=== PATIENT | female | born 1975 | race Caucasian/White ===

== ENCOUNTER 2021-07-30 15:15 | Emergency (ER) | payer BC, SELFPAY ==
--- NOTE | ~2021-07-30 | CT_ITS ---
EXAMINATION: CT abdomen pelvis w con INDICATION: Back pain and fever TECHNIQUE: Computed tomographic images of the abdomen and pelvis were obtained after the administrati on of 100 cc of Omnipaque 350 intravenous contrast. The dose-length product (DLP) was 192.24 mGy-cm. Automated exposure control and iterative reconstruction technique were employed. COMPARISON: None available FINDINGS: Minimal dependent atelectasis is present in the lung bases. The heart size is normal. The l iver, spleen, pancreas, gallbladder, and adrenal glands are normal. The kidneys are unremarkable. Humphrey cified atherosclerosis is noted. No pathologically enlarged abdominal or pelvic lymph nodes are ident ified. There is no free intraperitoneal gas or evidence of bowel obstruction. The appendix is normal. No CT abnormality is identified in the left buttock in the area marked with the BB. The lumbar spine is unremarkable. A 2.3 cm mass of the left adnexa demonstrates enhancement identical to the uterine fundus and is connected to the wrist by a thin stalk, consistent with a pedunculated fibroid. IMPRESSION: 1. No CT correlate for the patient's symptoms. Reviewed, dictated and finalized at location A.
[2021-07-30 15:18] VITALS: BP 131/69; PULSE 100; RESP 14; TEMP 36.6; O2SAT 97
--- NOTE | 2021-07-30 15:24 | ED.GENADULT ---
HPI - General Adult General Chief complaint: Skin/Abscess/Foreign Body Stated complaint: bump on back Time Seen by Provider: 07/30/21 15:21 History of Present Illness HPI narrative: Patient is a 46 and female otherwise healthy who comes into the ED today with concern that she may have an abscess and her low back area. Patient reports that for the last 2 days she has been having subjective fevers and chills and sweats but she does not have a monitor at home to check this with. She takes aspirin which helps. She is having some tightness in the left side of her low back and she can feel a lump there so she is concerned that she may have an abscess. Denies any other symptoms. Denies previous history of similar symptoms. No chance of . No other concerns. Related Data Allergies Allergy/AdvReac Type Severity Reaction Status Date / Time erythromycin base Allergy Unknown Verified 07/19/16 16:42 Review of Systems Constitutional: Constitutional: Reports as per HPI, Reports fever(s), Denies night sweats and Denies weakness Cardiovascular: Cardiovascular: Denies chest pain, Denies edema, Denies leg edema, Denies dyspnea and Denies orthopnea Respiratory: Respiratory: Denies cough and Denies dyspnea Gastrointestinal: Gastrointestinal: Denies abdominal pain, Denies constipation, Denies diarrhea, Denies nausea and Denies vomiting Musculoskeletal: Musculoskeletal: Denies abnormal gait, Denies back pain, Denies numbness and Denies tingling Neurologic: Denies Abnormal speech present, Denies abnormal gait, Denies numbness, Denies tingling and Denies weakness Psychiatric: Psychiatric: Denies homicidal ideation and Denies suicidal ideation [facility] Social History Social History Smoking status: Never smoker Alcohol intake: never Exam Narrative: Pleasant, well-appearing Const: General: cooperative, healthy appearing, comfortable, no acute distress, well developed, alert, awake and Physically active Orientation/consciousness: patient oriented x3 HENMT: Head: normal to inspection, normocephalic and atraumatic Ears: external ears normal General nose exam: Normal external nose present Eyes: Pupils: Equal, round and reactive pupils present EOM: EOMs intact bilaterally Neck: Neck: normal visual inspection Chest: Chest palpation & inspection: normal inspection of the chest and no tenderness Resp: Effort & Inspection: normal respiratory effort and able to speak in complete sentences Auscultation: clear to auscultation bilaterally Cardio: Rate: regular rate Rhythm: regular rhythm GI: Inspection: normal to inspection GI Palp: Yes abdominal tenderness : General: Yes no CVA tenderness Back/Spine/Pelvis: Back: no CVA tenderness and other Other: Full range of motion. Neurovascular intact throughout. Back/spine/pelvis image: 1. At the lower lumbar musculature there is what feels like a muscle spasm. But no overlying erythema or edema or induration or fluctuance or any other skin changes. No midline tenderness. Skin: General skin exam: normal color and no rashes or lesions noted Lesions: no lesions Neuro: General: patient oriented x3, no focal motor deficits and CN's II-XI intact bilaterally Cranial nerves: Yes Equal, round and reactive pupils present Speech: No Abnormal speech present Extrem: General: normal to inspection and full ROM Psych: Appearance: grossly normal and well kempt Mental Status: mental status grossly normal Speech and movement: Normal speech and movement present Affect: normal affect Thought process: Normal thought process present Course Reevaluation(s) Reevaluation #1: Rechecked patient. Very normal work-up. Gave patient reassurance that there is no signs of abscess clinically or on CT/lab work. Symptoms to be muscular in nature. Unclear cause of subjective fevers. Patient tells me that about 2 weeks ago she felt a pull in the left side of her low back when moving an object which m
[2021-07-30 17:22] LABS: Basophils Percent Auto 0.3 % (0.2-1.2); Eosinophils Percent Auto 0.1 % (0-4.4); Hematocrit 44.1 % (37.0-47.0); Hemoglobin 14.8 g/dL (12.0-15.0); Immature Granulocyte Absolute 0.03 K/mm3 (0.00-0.031); Immature Granulocyte Percent A 0.3 % (0-0.5); Lymphocytes Absolute Auto 1.76 K/mm3 (0.9-3.2); Lymphocytes Percent Auto 18.1 % (18.3-44.2); Mean Corpuscular HGB Conc 33.6 g/dl (32-36); Mean Corpuscular Hemoglobin 31.4 pg (26-34); Mean Corpuscular Volume 93.4 fl (80-100); Mean Platelet Volume 10.8 fl (7.4-10.4); Monocytes Absolute Auto 0.7 K/mm3 (0.1-0.6); Neutrophils Absolute Auto 7.2 K/mm3 (1.3-6.7); Neutrophils Percent Auto 74.2 % (45.5-73.1); Platelet Count Result 285 k/mm3 (150-375); Red Blood Count 4.72 M/mm3 (4.2-5.4); Red Cell Distribution Width 12.4 % (11.5-14.5); White Blood Count 9.7 K/mm3 (4.5-10.0)
[2021-07-30 17:32] LABS: Alanine Aminotransferase 13 U/L (4-35); Albumin Level 5.3 g/dL (3.5-5.1); Alkaline Phosphatase 93 U/L (38-126); Anion Gap 16 mmol/L (8-16); Aspartate Amino Transferase 22 U/L (14-36); Bilirubin,Total 0.6 mg/dL (0.2-1.3); Blood Urea Nitrogen 4 mg/dL (7-17); Calcium 9.7 mg/dL (8.4-10.2); Carbon Dioxide 24 mmol/L (22-30); Chloride 101 mmol/L (98-107); Estimated Glomerular Filt Rate > 60; Glucose 137 mg/dL (65-110); Potassium 3.7 mmol/L (3.4-5.0); Sodium 141 mmol/L (137-145)
[2021-07-30 18:18] LABS: Add Urine Microscopic? YES; Appearance Urine Clear (Clear); Bacteria Urine Trace /hpf; Bilirubin Urine Negative (Negative); Blood Urine 1+ (Negative); Color Urine Yellow (Yellow); Glucose Urine UA Negative (Negative); Ketones Urine Trace mg/dL (Negative); Leukocyte Esterase Ur Negative LEU/UL (Negative); Mucus Urine Rare /lpf; Nitrate Urine Negative (Negative); Protein Urine 1+ mg/dL (Negative); Specific Grav Ur 1.009 (1.001-1.035); Squamous Epithelial Cell Urine Rare /hpf (Few); Urobilinogen Urine Negative mg/dL (<2.0); WBC Urine 0-3 /hpf
[2021-07-30 20:54] VITALS: BP 139/88; PULSE 114; RESP 15; O2SAT 97
== END 2021-07-30 20:55 | disposition home or self-care (01) ==
PROVIDERS: Physician Assistant Medical; Emergency Provider Emergency Medicine; PCP Internal Medicine
DX: S39.012A Strain of muscle, fascia and tendon of lower back, initial encounter (principal); M62.830 Muscle spasm of back; X58.XXXA Exposure to other specified factors, initial encounter
CPT/HCPCS: 36415; 74177; 80053; 81001; 81025; 85025; 99283; 99284; Q9967

== ENCOUNTER 2021-08-01 02:27 | Emergency (ER) | payer BC, SELFPAY ==
[2021-08-01 02:33] VITALS: BP 147/86; PULSE 96; RESP 14; TEMP 36.2; O2SAT 100
[2021-08-01 04:56] VITALS: BP 121/77; BP 128/97; BP 155/90; PULSE 80; PULSE 88
[2021-08-01] MEDS: MECLIZINE HCL 25 MG TABLET PO (04:57)
--- NOTE | 2021-08-01 04:58 | ED.GENADULT ---
HPI - General Adult General Chief complaint: Dizziness Stated complaint: dizzy for 6 month intermittently Time Seen by Provider: 08/01/21 03:47 History of Present Illness HPI narrative: Patient is a 46-year-old female who presents ER with dizziness. Reports has been ongoing for several months. She cannot elaborate as to if it spinning dizziness or lightheadedness. She is unsure how long it lasts. When asked if it lasts for seconds or minutes or hours she cannot give an answer. Denies any numbness or tingling or weakness to an arm or leg. She was seen in the ER recently for muscle spasms and had normal blood work and a normal CT scan. Patient reports he has not seen a PCP in 3 years. Related Data Allergies Allergy/AdvReac Type Severity Reaction Status Date / Time erythromycin base Allergy Unknown Unknown Verified 08/01/21 02:38 Review of Systems Review of Systems: All systems reviewed & are unremarkable except as noted in HPI and below Constitutional: Constitutional: Denies chills, Denies fever(s) and Denies weakness Eyes: Eyes: Denies change in vision and Denies photophobia ENT: Reports dizziness, Denies nasal congestion and Denies sore throat Cardiovascular: Cardiovascular: Denies chest pain, Denies rapid heart rate and Denies radiating jaw, neck or arm pain Respiratory: Respiratory: Denies cough and Denies dyspnea Neurologic: Denies headache(s), Denies focal weakness and Denies numbness PMFSH Past Medical History Medical History (Updated 08/01/21 @ 06:00 by Victor Manuel Claire MD) Healthy female adult Surgical History Surgical History (Updated 08/01/21 @ 05:56 by Victor Manuel Claire MD) No history of previous surgery Social History Social History Smoking status: Never smoker Alcohol intake: never Exam Narrative: GENERAL: Well-appearing, well-nourished, and in no acute distress. HEAD: Normocephalic, atraumatic. EYES: PERRLA and EOMI. ENT: Mucous membranes moist. TMs normal bilaterally. CHEST: Clear to auscultation. No respiratory distress. HEART: Regular rate and rhythm. Normal peripheral pulses. EXTREMITIES: Normal range of motion. No edema. SKIN: Warm, dry, no rash. NEURO: Alert and oriented x3. Course Course Emergency Course: Patient received meclizine. Patient is either high or has mental illness. She denies using any drugs and denies having mental illness and denies ever being treated for mental illness. She is giggling regularly while in her room. Vital Signs Vital signs: Vital Signs Temperature 97.1 F L 08/01/21 02:33 Pulse Rate 96 08/01/21 02:33 Respiratory Rate 14 08/01/21 02:33 Blood Pressure 147/86 H 08/01/21 02:33 Pulse Oximetry 100 08/01/21 02:33 Temperature 97.1 F L 08/01/21 02:33 Pulse Rate 80 08/01/21 04:56 Respiratory Rate 14 08/01/21 02:33 Blood Pressure 121/77 08/01/21 04:56 Pulse Oximetry 100 08/01/21 02:33 Medical Decision Making Vital Signs Vital Signs: Vital Signs Temperature 97.1 F L 08/01/21 02:33 Pulse Rate 96 08/01/21 02:33 Respiratory Rate 14 08/01/21 02:33 Blood Pressure 147/86 H 08/01/21 02:33 Pulse Oximetry 100 08/01/21 02:33 Temperature 97.1 F L 08/01/21 02:33 Pulse Rate 80 08/01/21 04:56 Respiratory Rate 14 08/01/21 02:33 Blood Pressure 121/77 08/01/21 04:56 Pulse Oximetry 100 08/01/21 02:33 Discharge Plan Discharge Clinical Impression: Dizziness Patient Disposition: Home, Self-Care Condition: Stable Instructions: Dizziness (ED) Additional Instructions: Follow-up with your primary care doctor for further treatment evaluation of your dizziness. Return the ER if you have fever over 100.4 ?F, you cannot keep down food or water, you have additional concerns. Prescriptions: No Action naproxen 500 mg tablet 500 mg PO BID PRN (Reason: pain) Qty: 14 RF: 0 Follow-up/Referrals: Gurdeep Payton MD [Primary Care Provider] - 1 Week
--- NOTE | 2021-08-01 05:47 | PC.NURSE ---
Patient states not feeling better or worse after medication.
[2021-08-01 06:13] VITALS: BP 139/89; PULSE 81; RESP 18; TEMP 36.7; O2SAT 99
== END 2021-08-01 06:36 | disposition home or self-care (01) ==
PROVIDERS: Emergency Provider Emergency Medicine; PCP Internal Medicine
DX: R42 Dizziness and giddiness (principal)
CPT/HCPCS: 99283; A9270

== ENCOUNTER 2021-08-02 06:14 | Observation (INO) | payer BC, SELFPAY ==
[2021-08-02] VITALS (8 sets, daily range): BP systolic 101–130; BP diastolic 72–88; PULSE 81–96; RESP 14–20; TEMP 36.2–36.8; O2SAT 98–100
--- NOTE | ~2021-08-02 | MR_ITS ---
EXAMINATION: MR brain/brain stem wo/w con DATE: 08/02/2021 14:19 INDICATION: Altered mental status TECHNIQUE: Magnetic resonance imaging (MRI) of the brain and brainstem was performed without and with intravenous contrast. Sequences included sagittal and axial T1-weighted SE, axial diffusion-weighted FS EPI ASSET, axial T2*-weighted GRE, axial T2-weighted FLAIR Propeller, and axial T2-weighted Prope ller. Postcontrast axial and coronal T1-weighted SE was obtained. Apparent diffusion coefficient (ADC ) maps were created. COMPARISON: None. FINDINGS: There are no areas of restricted diffusion to suggest acute infarction. There is no acute h emorrhage seen on the T2*, a hemosiderin sensitive sequence. The ventricles are normal in size. There are no extra-axial collections. Flow voids are seen in the cerebral arteries on the T2-weighted seq uences consistent with their expected patency. Visualized orbits and soft tissues are unremarkable. There are no areas of abnormal enhancement on the post contrast images. IMPRESSION: 1. No acute findings. Reviewed, dictated and finalized at location A. IMPRESSION: 1. No acute findings.
--- NOTE | ~2021-08-02 | CT_ITS ---
EXAMINATION: CT BRAIN W/O DATE: 08/02/2021 07:57 INDICATION: Confusion, dizziness, headache and blurred vision. TECHNIQUE: Computed tomography (CT) of the head was performed without intravenous contrast. The dose- length product was 605.33 mGy-cm. COMPARISON: No prior studies for comparison. FINDINGS: Normal brain parenchymal volume for age. Normal henson-white differentiation. No acute intrac ranial hemorrhage, infarction, mass or mass effect. There is a small hyperdense lesion at the third v entricle measuring 4 mm, compatible with colloid cyst. No ventriculomegaly or midline shift. Midline sagittal images demonstrate a normal corpus callosum, c raniovertebral junction and sella turcica. Basilar cisterns are patent. Paranasal sinuses and mastoids are pneumatized. No depressed skull fractures. IMPRESSION: 1. No acute intracranial abnormality. 2: Colloid cyst measuring 4 mm, image 22. Reviewed, dictated and finalized at location A.
--- NOTE | 2021-08-02 06:46 | PC.NURSE ---
Pt's belongings found in ED, and returned to pt.
--- NOTE | 2021-08-02 07:02 | PC.NURSE ---
pt appears asleep, resting on stretcher c eyes closed. no s/s of distress.
--- NOTE | 2021-08-02 07:11 | ECG_ITS ---
Measurements Intervals [place] Rate: 90 P: -53 PA: 137 QRS: 3 QRSD: 80 T: -7 QT: 356 QTc: 436 Interpretive Statements ECTOPIC ATRIAL RHYTHM INCOMPLETE RIGHT BUNDLE BRANCH BLOCK BORDERLINE T WAVE ABNORMALITY- INFERIOR LEADS BASELINE ARTIFACT- II, III, AVF ABNORMAL ECG Electronically Signed On 08-02-2021 9:04:55 CDT by Shane Pathak D.O.
[2021-08-02 07:37] LABS: Basophils Absolute Auto 0.1 K/mm3 (0.0-0.1); Basophils Percent Auto 0.7 % (0.2-1.2); Eosinophils Absolute Auto 0.2 K/mm3 (0-0.3); Eosinophils Percent Auto 1.4 % (0-4.4); Hematocrit 38.2 % (37.0-47.0); Hemoglobin 13.2 g/dL (12.0-15.0); Immature Granulocyte Absolute 0.03 K/mm3 (0.00-0.031); Immature Granulocyte Percent A 0.3 % (0-0.5); Lymphocytes Absolute Auto 2.25 K/mm3 (0.9-3.2); Lymphocytes Percent Auto 20.5 % (18.3-44.2); Mean Corpuscular HGB Conc 34.6 g/dl (32-36); Mean Corpuscular Hemoglobin 31.3 pg (26-34); Mean Corpuscular Volume 90.5 fl (80-100); Mean Platelet Volume 10.6 fl (7.4-10.4); Monocytes Absolute Auto 0.9 K/mm3 (0.1-0.6); Monocytes Percent Auto 7.8 % (2.6-8.5); Neutrophils Absolute Auto 7.6 K/mm3 (1.3-6.7); Neutrophils Percent Auto 69.3 % (45.5-73.1); Platelet Count Result 269 k/mm3 (150-375); Red Blood Count 4.22 M/mm3 (4.2-5.4); Red Cell Distribution Width 12.2 % (11.5-14.5)
--- NOTE | 2021-08-02 07:49 | ED.GENADULT ---
HPI - General Adult General Chief complaint: Dizziness Stated complaint: dizziness, h/a - seen yesterday for this Time Seen by Provider: 08/02/21 07:03 Source: patient History of Present Illness HPI narrative: Patient is a 46 y/o female complaining not feeling well for a while. She is unable to state when exactly her symptoms started. LKW is thus undefined. She states that she feels her speech is slurred. She feels sleepy. There is no known alleviating and exacerbating factor. Related Data Allergies Allergy/AdvReac Type Severity Reaction Status Date / Time erythromycin base Allergy Unknown Unknown Verified 08/01/21 02:38 Review of Systems Review of Systems: ROS unobtainable: Yes unobtainable due to mental status PMFSH Past Medical History Medical History Healthy female adult Surgical History Surgical History No history of previous surgery Social History Social History Smoking status: Never smoker Alcohol intake: never Exam Const: General: no acute distress and well developed Orientation/consciousness: oriented to person, oriented to place and confusion HENMT: Head: normocephalic Ears: external ears normal General nose exam: Normal external nose present Eyes: General: appearance normal, both eyes and all related structures Conjunctivae: conjunctivae normal Neck: Neck: normal visual inspection and full ROM Chest: Chest palpation & inspection: normal inspection of the chest and no tenderness Resp: Effort & Inspection: normal respiratory effort Auscultation: clear to auscultation bilaterally Cardio: Rate: regular rate Rhythm: regular rhythm GI: GI Palp: No abdominal tenderness and Yes Soft to palpation Skin: General skin exam: normal color and turgor normal Neuro: General: oriented to person and oriented to place Extrem: General: normal to inspection, full ROM and no pedal edema Psych: Appearance: grossly normal Speech and movement: Slowed speech present (Psych) Affect: Blunted affect present Course Consultations Consultation #1: Discussed with Dr. Justice, who agrees to admit. Date: 08/02/21 Time: 09:35 Consultation #2: Discussed with Dr. Sanz, who agrees to consult. Date: 08/02/21 Time: 09:48 Vital Signs Vital signs: Vital Signs Temperature 36.6 C 08/02/21 06:36 Pulse Rate 94 08/02/21 06:36 Respiratory Rate 14 08/02/21 06:36 Blood Pressure 115/72 08/02/21 06:36 Pulse Oximetry 100 08/02/21 06:36 Temperature 36.6 C 08/02/21 06:36 Pulse Rate 92 08/02/21 07:24 Respiratory Rate 16 08/02/21 07:24 Blood Pressure 130/88 08/02/21 07:24 Pulse Oximetry 99 08/02/21 07:24 Medical Decision Making MDM Narrative Medical decision making narrative: Stroke is considered as possible cause of her symptoms. However, she is not a candidate for tPA or other treatment because LKW is undefined. Vital Signs Vital Signs: Vital Signs Temperature 36.6 C 08/02/21 06:36 Pulse Rate 94 08/02/21 06:36 Respiratory Rate 14 08/02/21 06:36 Blood Pressure 115/72 08/02/21 06:36 Pulse Oximetry 100 08/02/21 06:36 Temperature 36.6 C 08/02/21 06:36 Pulse Rate 92 08/02/21 07:24 Respiratory Rate 16 08/02/21 07:24 Blood Pressure 130/88 08/02/21 07:24 Pulse Oximetry 99 08/02/21 07:24 Lab Data Result diagrams: 08/02/21 07:31 08/02/21 07:31 Labs: Lab Results 08/02/21 08/02/21 08/02/21 Range/Units 07:31 07:31 09:32 WBC 11.0 H (4.5-10.0) K/mm3 RBC 4.22 (4.2-5.4) M/mm3 Hgb 13.2 (12.0-15.0) g/dL Hct 38.2 (37.0-47.0) % MCV 90.5 (80-100) fl MCH 31.3 (26-34) pg MCHC 34.6 (32-36) g/dl RDW 12.2 (11.5-14.5) % Plt Count 269 (150-375) k/mm3 MPV 10.6 H (7.4-10.4) fl Immature Gran % (Auto) 0.3 (0-0.5) % Neut % (Au
[2021-08-02 07:52] LABS: Alanine Aminotransferase 13 U/L (4-35); Albumin Level 4.7 g/dL (3.5-5.1); Alkaline Phosphatase 76 U/L (38-126); Anion Gap 11 mmol/L (8-16); Aspartate Amino Transferase 23 U/L (14-36); Bilirubin,Total 0.6 mg/dL (0.2-1.3); Blood Urea Nitrogen 9 mg/dL (7-17); Calcium 9.1 mg/dL (8.4-10.2); Carbon Dioxide 26 mmol/L (22-30); Chloride 101 mmol/L (98-107); Estimated CRCL calculation 103 ml/min; Estimated Glomerular Filt Rate > 60; Glucose 113 mg/dL (65-110); Potassium 3.2 mmol/L (3.4-5.0); Sodium 138 mmol/L (137-145)
[2021-08-02 09:52] LABS: Add Urine Microscopic? YES; Appearance Urine Cloudy (Clear); Bacteria Urine Trace /hpf; Bilirubin Urine Negative (Negative); Blood Urine 1+ (Negative); Color Urine Amber (Yellow); Glucose Urine UA Negative (Negative); Ketones Urine 1+ mg/dL (Negative); Leukocyte Esterase Ur Negative LEU/UL (Negative); Mucus Urine Rare /lpf; Nitrate Urine Negative (Negative); Protein Urine Negative (Negative); Specific Grav Ur 1.013 (1.001-1.035); Squamous Epithelial Cell Urine Few /hpf (Few); WBC Urine 0-3 /hpf
[2021-08-02 10:04] LABS: Amphetamine Screen Urine Negative (Negative); Barbiturate Screen Urine Negative (Negative); Benzodiazepines Screen Urine Negative (Negative); Cannabinoid Screen Urine Negative (Negative); Cocaine Screen Urine Negative (Negative); Methadone Screen Urine Negative (Negative); Opiate Screen Urine Negative (Negative); Phencyclidine Screen Urine Negative (Negative)
[2021-08-02] MEDS: POTASSIUM CHLORIDE 20 MEQ TABLET PO (10:14)
--- NOTE | 2021-08-02 12:45 | ADMGEN ---
This patient, Gaviota Marshall, was admitted to 2 Medical Room 256-. Patient/family oriented to hospital policies and general routines including ID bracelet, bed and alarms, visiting hours, pain management, procedures, bathroom and other care routines, personal items, smoking policy, room service/diet, and visiting hours. Information on how to activate the Rapid Response Team has been discussed. Patient/Family are encouraged to report perceived risks to care and to ask questions if they do not understand what they are told or what they should do.
[2021-08-02] MEDS: SODIUM CHLORIDE 0.9% IV 1,000 ML 125 ML IV CONT (13:06)
--- NOTE | 2021-08-02 13:19 | P.CONNEU_ITS ---
Consult date: 08/02/21 HPI: Gaviota Levi Crew is a 46 year old female [facility] Past Medical History Medical History Healthy female adult Surgical History Surgical History No history of previous surgery Social History Social History Smoking status: Current every day smoker Tobacco type: e-cigarettes/vaping Second hand tobacco smoke exposure: Yes Alcohol intake: never Substance use: never Spiritual care concerns: No Meds Home Medications and Allergies Home Medications Medication Instructions Recorded Confirmed Type naproxen 500 mg PO BID PRN #14 tablet 07/30/21 08/02/21 Rx spironolactone [Aldactone] 50 mg PO DAILY 08/02/21 08/02/21 History Allergies Allergy/AdvReac Type Severity Reaction Status Date / Time erythromycin base Allergy Unknown Unknown Verified 08/02/21 13:15 Vital Signs Vital Signs - 24 hr 08/02/21 06:36 08/02/21 07:24 08/02/21 12:10 Temperature 36.6 C Pulse Rate 94 92 96 Respiratory Rate 14 16 Blood Pressure 115/72 130/88 101/74 Pulse Oximetry 100 99 100 Results Labs CBC & Chem 7: 08/02/21 07:31 08/02/21 07:31 Labs: Short CBC 08/02/21 Range/Units 07:31 WBC 11.0 H (4.5-10.0) K/mm3 Hgb 13.2 (12.0-15.0) g/dL Hct 38.2 (37.0-47.0) % Plt Count 269 (150-375) k/mm3 BMP 08/02/21 07:31 Sodium 138 Potassium 3.2 L Chloride 101 Carbon Dioxide 26 BUN 9 D Creatinine 0.50 L Glucose 113 H Calcium 9.1 Liver Function 08/02/21 Range/Units 07:31 Total Bilirubin 0.6 (0.2-1.3) mg/dL AST 23 (14-36) U/L ALT 13 (4-35) U/L Alkaline Phosphatase 76 (38-126) U/L Albumin 4.7 (3.5-5.1) g/dL Urine 08/02/21 Range/Units 09:32 Urine Color [place] (Yellow) Urine Appearance Cloudy H (Clear) Urine pH 6.0 (5.0-9.0) Ur Specific [place] 1.013 (1.001-1.035) Urine Protein Negative (Negative) mg/dL Urine Glucose (UA) Negative (Negative) mg/dL
--- NOTE | 2021-08-02 13:19 | WPDNEURCNPN ---
Assessment and Plan Additional Plan young girl with history of not feeling well, nonfocal neurological examination, during the hospitalization when I asked her to hold her hands up and keep the eyes closed she turned her head to the left side and dropped her upper extremities on the chest with this and nonfocal neurological examination otherwise most likely it is psychogenic she will need the treatment with psychiatrist which we can make the referral the CT scan has already been done and the routine blood workup is normal if the MRI can be done today that would be great or else tomorrow source she can be comfortable in following with a doctor as an outpatient Consult date: 08/02/21 Time Seen: 13:30 HPI: Gaviota Marshall is a 46 year old female Has been admitted to the hospital through the emergency room where she reported with complaints of not feeling well for a while she reported her speech is slurred is sleepy all the time, he has no history of smoking or drinking, initial evaluation in the emergency room revealed her walk normal vital signs except pulse rate of 94 blood pressure 115/72, initial CBC revealed WBC 46872 with hemoglobin 13.2 platelet count of 269 electrolytes normal except potassium of 3.2 UA also negative, normal EKG and toxicology screen negative, the scan of the head revealed no acute pathology 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 but no ventriculomegaly Review of Systems Review of Systems: All systems reviewed & are unremarkable except as noted in HPI and below PMFSH Past Medical History Medical History Healthy female adult Surgical History Surgical History No history of previous surgery Social History Social History Smoking status: Current every day smoker Tobacco type: e-cigarettes/vaping Second hand tobacco smoke exposure: Yes Alcohol intake: never Substance use: never Spiritual care concerns: No Meds Home Medications and Allergies Home Medications Medication Instructions Recorded Confirmed Type naproxen 500 mg PO BID PRN #14 tablet 07/30/21 08/02/21 Rx spironolactone [Aldactone] 50 mg PO DAILY 08/02/21 08/02/21 History Allergies Allergy/AdvReac Type Severity Reaction Status Date / Time erythromycin base Allergy Unknown Unknown Verified 08/02/21 13:15 Vital Signs Vital Signs - 24 hr 08/02/21 06:36 08/02/21 07:24 08/02/21 12:10 Temperature 36.6 C Pulse Rate 94 92 96 Respiratory Rate 14 16 Blood Pressure 115/72 130/88 101/74 Pulse Oximetry 100 99 100 Exam Const: General: cooperative, comfortable, no acute distress, alert and awake Nutritional Appearance: average body habitus Orientation/consciousness: oriented to person and oriented to place Limitations: no limitations HENMT: Head: normal to inspection Ears: hearing grossly normal bilaterally General nose exam: Normal external nose present Face and sinus: normal facial exam Mouth: Yes Normal oral and palatal mucosa present Eyes: General: appearance normal, both eyes and all related structures Visual King: normal visual king by confrontation Alignment and Position: alignment normal Periorbital: periorbital findings normal Eyelids: eyelids normal Conjunctivae: conjunctivae normal Sclera: sclerae normal Cornea: corneas normal Pupils: Equal, round and reactive pupils present EOM: EOMs intact bilaterally Neck: Neck: normal visual inspection and full ROM Carotids: normal carotid upstroke Resp: Effort & Inspection: normal respiratory effort and able to speak in complete sentences Auscultation: clear to auscultation bilaterally Cardio: Rate: regular rate Rhythm: regular rhythm Neuro: General: oriented to person, oriented to place, moves all extremities and CN's II-XI intact bilaterally Cranial nerves: Yes CN's II-XII intact bilaterally Cognit
--- NOTE | 2021-08-02 14:15 | PM.IMHP ---
H&P: HPI History of Present Illness Date/Time: 08/02/21 14:15 Chief Complaint: Dizziness. Narrative: This is a previously healthy 46-year-old female who presented to the emergency department earlier today via private vehicle from home for evaluation of dizziness. She has had intermittent episodes of dizziness over the past 6 months and when asked to further elaborate, it sounds as though it is more vertigo as she feels as though she is off balance and last lightheaded. In fact she was seen in the emergency department with the same complaint early yesterday morning at which time she had an unremarkable workup. She is prescribed spironolactone 50 mg daily for acne, but typically only takes half of that and she has not noticed any drop in her blood pressure from that. She has had discomfort and fullness in her ears as well. When I went to retrieve an otoscope in return to the room, the patient was tearful. I sat down and chatted with the patient for quite some time, and she admits to being depressed. It is to the point that she isn't really leaving her home much, she has been sleeping quite a bit, and her appetite has been poor. She goes on to say that she has a history of depression though she also mentions having periods of impulsivity and and long periods of wakefulness. Additionally she does have feelings of anxiety with racing heart associated with shortness of breath and she will at times feel dizzy with that as well. She has no history of suicide attempt and has no plan for suicide however she has had fleeting thoughts that things may be better if she were not alive. Previously she had seen a counselor and that was of benefit to her. She does have supportive friends but does not have great relationships with her family. She denies fever, chills, sweats, sinus congestion, rhinorrhea, otalgia, cough, nausea, vomiting, diarrhea, and dysuria. No syncope or near syncope. No head trauma or loss of consciousness. Review of Systems Review of Systems: Twelve systems were reviewed with pertinent positives and negatives as per HPI. Except as documented, all other systems were reviewed and are negative. [facility] Past Medical History Medical History (Updated 08/02/21 @ 23:25 by Alejandra Roy PA-C) Anxiety Depression Healthy female adult Surgical History Surgical History No history of previous surgery Family History Family History Other Depression Social History Social History (Updated 08/02/21 @ 23:19 by Alejandra Roy PA-C) Social History: Surrogate decision maker: Annamarie Marshall, mother. Code status: Full code. Smoking status: Current every day smoker Tobacco type: e-cigarettes/vaping Second hand tobacco smoke exposure: Yes Alcohol intake: never Substance use: never Additional living arrangements comments: Patient lives in her own home with 2 cats. Additional occupation/education comments: Employed as an steel inspector of some sort Meds Home Medications and Allergies Home Medications Medication Instructions Recorded Confirmed Type naproxen 500 mg PO BID PRN #14 tablet 07/30/21 08/02/21 Rx spironolactone [Aldactone] 50 mg PO DAILY 08/02/21 08/02/21 History Allergies Allergy/AdvReac Type Severity Reaction Status Date / Time erythromycin base Allergy Unknown Unknown Verified 08/02/21 13:15 Vital Signs Vital Signs - 24 hr 08/02/21 06:36 08/02/21 07:24 08/02/21 12:10 Temperature 97.9 F Pulse Rate 94 92 96 Respiratory Rate 14 16 Blood Pressure 115/72 130/88 101/74 Pulse Oximetry 100 99 100 Exam Narrative: General: Thin, well-developed female sitting up in bed. Weight: 56.8 kg. BMI: 21.5. HEENT: Normocephalic, atraumatic. PERRL, EOMI. Bilateral tympanic membranes are dull with retraction and serous air-fluid levels however the right ear appears a bit more purulent with
[2021-08-02 15:35] LABS: Ammonia < 9 umol/L (9-30); Potassium 3.4 mmol/L (3.4-5.0)
[2021-08-03] VITALS: BP 115/63; PULSE 66; PULSE 80; RESP 20; TEMP 36.7; O2SAT 99
[2021-08-03 00:05] VITALS: BP 120/74; PULSE 77; RESP 20; TEMP 36.4; O2SAT 99
[2021-08-03 00:09] VITALS: BP 108/75; PULSE 93; RESP 20; TEMP 36.5; O2SAT 98
[2021-08-03] MEDS: AMOXICILLIN/CLAVULANATE K 875-125 MG TAB 1 TABLET PO ×2 (00:33→09:46)
[2021-08-03 04:00] VITALS: BP 106/71; PULSE 70; PULSE 74; RESP 20; TEMP 36.8; O2SAT 99
[2021-08-03 06:12] LABS: Anion Gap 5 mmol/L (8-16); Blood Urea Nitrogen 6 mg/dL (7-17); Calcium 8.3 mg/dL (8.4-10.2); Carbon Dioxide 28 mmol/L (22-30); Chloride 104 mmol/L (98-107); Estimated CRCL calculation 103 ml/min; Estimated Glomerular Filt Rate > 60; Glucose 100 mg/dL (65-110); Magnesium 2.2 mg/dL (1.6-2.3); Potassium 3.2 mmol/L (3.4-5.0); Sodium 137 mmol/L (137-145)
[2021-08-03 08:00] VITALS: BP 113/69; PULSE 69; PULSE 72; RESP 16; TEMP 36.7; O2SAT 95
[2021-08-03] MEDS: LORATADINE 10 MG TABLET PO (09:46)
[2021-08-03] MEDS: POTASSIUM CHLORIDE 20 MEQ TABLET 40 MEQ PO (09:46)
--- NOTE | 2021-08-03 10:47 | WPDNEUROLOGY ---
Neurology EEG Report General Information Date of Study: 08/03/21 TEST eeg DIAGNOSIS Change in the mental status CONDITION OF RECORDING awake drowsy and sleep EEG NUMBER [id number] CLINICAL HISTORY patient came in to the hospital with symptoms of dizziness, confusion and ringing in ears. EEG DESCRIPTION basic resting occipital frequency consists of low to medium voltage 8 to 10 hertz per 2nd alpha admixed with minimal amount of low-voltage 15 to 18 hertz per 2nd beta. Low-voltage beta activity seen diffusely admixed with waxing and waning posterior alpha rhythm during drowsiness. Bilateral symmetrical sleep activity seen during sleep. Hyperventilation not done photic stimulation not done. Non paroxysmal. Nonfocal. Nonlateralizing. IMPRESSION no significant abnormalities noted
[2021-08-03 11:38] VITALS: BMI 21.4
[2021-08-03 12:00] VITALS: BP 112/71; PULSE 66; PULSE 68; RESP 18; TEMP 36.3; O2SAT 98
--- NOTE | 2021-08-03 15:39 | PM.DS ---
DS: Admitting Diagnosis Discharge Date 08/03/21 Admitting Diagnosis Dizziness DS: Discharge Diagnosis Discharge Diagnosis (1) Hypokalemia: Code(s): E87.6 - Hypokalemia Status: Acute (2) Vertigo: Code(s): R42 - Dizziness and giddiness Status: Acute (3) Otitis media: Code(s): H66.90 - Otitis media, unspecified, unspecified ear Status: Acute (4) Major depression, recurrent: Code(s): F33.9 - Major depressive disorder, recurrent, unspecified Status: Acute (5) Anxiety: Code(s): F41.9 - Anxiety disorder, unspecified Status: Acute DS: Summary Hospital Course Reason for hospitalization: 46yo healthy female here for dizziness. Please see H&P for details. Hospital Course: The patient presents today with dizziness c/w vertigo. She was found to have right otitis media and was started on Augmentin. Her symptoms were vague and she provide few details. Potassium was low and this was replaced. She was not orthostatic but felt she was possibly mild dehydrated from her Spironolactone. Neurology was consulted but felt her symptoms may be related to depression. She does admit to feeling depressed but is not suicidal or at risk of harming herself at this time. regulatory compliance coordinator provided patient with mental health resources such as a list of local counselors and psychiatrist. Did not feel Crisis evaluation was required. She overall did well and had resolution of her symptoms. She was able to be discharged home on 08/03/21. Status at Discharge Cognitive/behavioral status at discharge: Stable Time Spent with Patient Time attestation: Total time spent providing and/or coordinating discharge services: 32 minutes Time spent: Greater than 30 minutes Exam Narrative: AF 97.4 112/71 68 18 98% ra Gen - NARD Chest - CTA bilaterally, nml RR CV - RRR S1/S2 Abd - Soft, NT/ND, Positive BS Ext - No pedal edema Neuro - Alert and oriented. Nonfocal exam. Psych - Nml mood and affect. Good eye contact. Skin - Warm and dry DS: Data Data Completed and Pending Labs on day of discharge: Labs from last 24 hours 08/03/21 08/02/21 08/02/21 05:27 15:17 15:17 Sodium 137 Potassium 3.2 L Chloride 104 Carbon Dioxide 28 Anion Gap 5 L BUN 6 L Creatinine 0.50 L Estim Creat Clear Calc 103 Estimated GFR > 60 Glucose 100 Calcium 8.3 L Magnesium 2.2 Vitamin B12 786.0 TSH (Reflex) 1.530 Discharge Plan Discharge Attending physician on discharge: Pancho Edouard Consulting providers: Humza Sanz Discharging Clinician: Pancho Edouard Anticipated Discharge Date/Time: 08/03/21 15:59 Patient Disposition: Home, Self-Care Activity: as tolerated Diet: regular Discharge Instructions: Please avoid large gathering, wear face coverings in public and practice social distance. Please complete your antibiotic course even if you are starting to feel well. Contact your doctor or call 911 and come to the Emergency Room if you have feeling that you could hurt yourself, worsening dizziness or other worrisome symptoms. Follow-up with your doctor in 1-2 weeks. Please call for appointment. Please arrange to follow-up with a psychiatrist from the list provided. Patient Instructions: Antibiotic Form, Help Prevent Suicide (DC), Suicide Prevention (DC) Stand Alone Forms: General Discharge Information Follow-up/Referrals: PHYSICIAN,SKI PATROL [Primary Care Provider] - Keep Reg. Scheduled Appt. Discharge Medications: New amoxicillin-pot clavulanate [Augmentin] 875-125 mg Tablet 1 tablet PO Q12HR Qty: 12 RF: 0 Held naproxen 500 mg tablet 500 mg PO BID PRN (Reason: pain) Qty: 14 RF: 0 Hold Instructions: hold and please discuss with your doctor spironolactone [Aldactone] 50 mg tablet 50 mg PO DAILY RF: 0 Hold Instructions: Hold and discuss with your doctor Date of admission: 08/02/21 10:33
== END 2021-08-03 16:53 | disposition home or self-care (01) ==
LOC: ANHED 07:16 → ANH2MED 11:45
PROVIDERS: Physician Assistant; Admitting Provider Family Medicine; Emergency Provider Emergency Medicine; Visit Provider Internal Medicine
DX: R42 Dizziness and giddiness (principal); H66.91 Otitis media, unspecified, right ear; E87.6 Hypokalemia; F41.8 Other specified anxiety disorders; F33.9 Major depressive disorder, recurrent, unspecified; F17.290 Nicotine dependence, other tobacco product, uncomplicated; Z23 Encounter for immunization; Z79.899 Other long term (current) drug therapy
CPT/HCPCS: 36415; 70450; 70553; 80048; 80053; 80307; 81001; 81025; 82140; 82607; 83735; 84132; 84443; 85025; 90471; 90653; 93005; 95816; 96360; 96361; 99285; A9270; A9577; G0008; G0378; J7030

== ENCOUNTER → 2021-10-07 12:57 | Outpatient (CLI) | payer BC, SELFPAY ==
--- NOTE | ~2021-10-07 | US_ITS ---
EXAMINATION: US pelvic complete DATE: 10/07/2021 13:23 INDICATION: Other specified noninflammatory disorders TECHNIQUE: Multiple transabdominal and endovaginal sonographic images of the pelvis were obtained. COMPARISON: CT, 07/30/2021 FINDINGS: The uterus measures 8.5 x 4.4 x 4.8 cm. There is a 2.3 cm isoechoic mass of the left adnexa positioned between the left ovary and uterine body, consistent with the pedunculated fibroid identif ied on the recent CT examination. The endometrial complex measures 11 mm. The right ovary measures 3. 0 x 1.6 x 2.8 cm. The left ovary measures 2.9 x 1.4 x 2.0 cm. There is no free fluid in the pelvis. IMPRESSION: 1. Stable pedunculated fibroid of the left adnexa, no acute findings. Reviewed, dictated and finalized at location A. RIOR DECORATOR
== END ==
PROVIDERS: PCP Family Medicine; Visit Provider Family Medicine
DX: N88.8 Other specified noninflammatory disorders of cervix uteri (principal)
CPT/HCPCS: 76856

== ENCOUNTER → 2021-10-14 16:11 | Outpatient (CLI) | payer BC, SELFPAY ==
--- NOTE | ~2021-10-14 | MM_ITS ---
EXAMINATION: MM screening miguel BI w [facility] HISTORY: Screening mammogram TECHNIQUE: Craniocaudal and mediolateral oblique 3-D tomosynthesis images were obtained and synthetic 2-D images were generated. CAD analysis was submitted and interpreted. COMPARISON: No prior mammogram is available for comparison at this institution. BREAST PARENCHYMAL COMPOSITION: There are scattered areas of fibroglandular density. FINDINGS: There is no evidence of suspicious mass, calcification, or architectural distortion to sugg est malignancy in either breast. There has been no suspicious interval change. IMPRESSION: 1. No mammographic evidence of malignancy. 2. Recommend routine screening mammography in one year. BI-RADS Category 1: Negative Reviewed, dictated and finalized at location A. AL CARE PROVIDER
== END ==
PROVIDERS: PCP Family Medicine; Visit Provider Family Medicine
DX: Z12.31 Encounter for screening mammogram for malignant neoplasm of breast (principal)
CPT/HCPCS: 77063; 77067